=== PATIENT | male | born 1965 | race Caucasian/White ===

== ENCOUNTER 2022-11-14 09:19 | Outpatient (CLI) | payer OTHER, SELFPAY ==
[2022-11-14 14:25] LABS: SARS PCR* POSITIVE SARS-CoV-2 (Negative)
== END 2022-11-14 09:20 | disposition home or self-care (01) ==
LOC: FBOREF 09:20
PROVIDERS: PCP Family Medicine; Visit Provider Orthopaedic Surgery
DX: U07.1 COVID-19 (principal)
CPT/HCPCS: 87635

== ENCOUNTER 2023-01-15 07:45 | Day surgery (SDC) | payer OTHER, SELFPAY ==
--- NOTE | 2022-11-20 11:26 | SUR.PREOP ---
11/20/22 Had a brief phone visit with patient as he already had pre-op teaching before his surgery was postponed. He will schedule a pre-op H&P. Otherwise, denies questions. Sandi CALDERÓN
--- NOTE | 2022-12-18 08:35 | PC.NURSE ---
Spoke with pt briefly as he has had pre-op teaching before surgery re-scheduled. Denies questions. States will call for an H&P appt or whether can be updated. Instructed to call hospital and ask for surgery if has any questions. Mark Gill Rn
[2023-01-15] VITALS (22 sets, daily range): BP systolic 94–144; BP diastolic 60–94; PULSE 56–87; RESP 16–18; TEMP 36.1–36.7; O2SAT 95–100; BMI 31.1
[2023-01-15] MEDS: SODIUM CHLORIDE 0.9 % (FLUSH) 10 ML SYRINGE IVF (08:00)
[2023-01-15] MEDS: CELECOXIB 200 MG CAPSULE PO (08:00)
[2023-01-15] MEDS: ACETAMINOPHEN 500 MG TABLET 1000 MG PO ×3 (08:00→20:31)
[2023-01-15] MEDS: LACTATED RINGERS 1000 ML 1,000 ML 100 ML IV ×2 (08:10→11:04)
[2023-01-15] MEDS: TRANEXAMIC ACID 100 MG/ML INJ 1000 MG IV (08:30)
[2023-01-15] MEDS: fentaNYL 100 MCG/2 ML inj IVP (09:13)
[2023-01-15] MEDS: MIDAZOLAM HCL 1 MG/ML inj IVP (09:13)
--- NOTE | 2023-01-15 09:17 | P.NB_ITS ---
Nerve Block Nerve Block Time Seen by Provider: 09:14 Date Seen: 01/15/23 Type of block requested by surgeon for post-operative analgesia: adductor canal Side: right Time out performed: Yes Verification of patient name: Yes Verification of date of : Yes Site marking: site marked Name of person performing procedure: Miguel Continuous monitoring Was continuous monitoring of O2 sat, B/P, monitoring and evaluation advisor, recorded every 15 minutes?: Yes Procedure Checklist: sterile prep, needles and gloves Ultrasound guided. Images saved: Yes Medications given in 5ml increments after negative aspiration: Ropivicaine %: 0.5 mL: 20 Needle gauge: 20 Decadron (mg): 10 Precedex (mcg): 25 Patient tolerated procedure well: Yes Additional comments: Needle noted adjacent to nerve Block Charges Block Charge (with Pro Fee): Femoral Nerve Use of Ultrasound Machine for Block: Yes- US Guidance/pain block
--- NOTE | 2023-01-15 09:17 | P.NB_ITS ---
Nerve Block Nerve Block Time Seen by Provider: 09:14 Date Seen: 01/15/23 Type of block requested by surgeon for post-operative analgesia: geniculars Side: right Time out performed: Yes Verification of patient name: Yes Verification of date of : Yes Site marking: site marked Name of person performing procedure: Miguel Continuous monitoring Was continuous monitoring of O2 sat, B/P, clinical research monitor, recorded every 15 minutes?: Yes Procedure Checklist: sterile prep, needles and gloves Medications given in 5ml increments after negative aspiration: Ropivicaine %: 0.5 mL: 9 Needle gauge: 25 Patient tolerated procedure well: Yes Block Charges Block Charge (with Pro Fee): Genicular Nerve Block Use of Ultrasound Machine for Block: No
--- NOTE | 2023-01-15 09:17 | W.ANESCHARGE ---
Anesthesia Charges Start Date/Time Anesthesia Start Date: 01/15/23 Anesthesia Start Time: 09:19 Stop Date/Time Anesthesia Stop Date: 01/15/23 Anesthesia Stop Time: 11:19
--- NOTE | 2023-01-15 09:19 | SUR.PREOP ---
TIME?OUT:?912 PT/RN/MDA?VERIFICATION?OF?SURGICAL?SITE,?PROCEDURE,?AND?CONSENT OBTAINED?PRIOR?TO?INVASIVE?PROCEDURE.
[2023-01-15] MEDS: CEFAZOLIN 2 GM INJ IVP (09:30)
--- NOTE | 2023-01-15 10:47 | CRLHL7_ITS ---
For Patients: As a result of the Cures Act, medical imaging exams and procedure reports are released immediately into your electronic medical record. You may view this report before your referring provider. If you have questions, please contact your health care provider. Indication: Postop Technique: Two views right knee Findings/Impression: Hardware from a right total knee arthroplasty is in satisfactory position. Bone alignment is normal. No sign of acute fracture. Postop changes are within normal limits. Dictated by Abelino Edwards MD @ 01/15/2023 12:03:39 PM (Electronically Signed)
--- NOTE | 2023-01-15 10:50 | PM.ORPRC ---
Procedure Note Date of procedure: 01/15/23 Procedure: PREOPERATIVE DIAGNOSIS: Right knee osteoarthritis POSTOPERATIVE DIAGNOSIS: Right knee osteoarthritis NAME OF OPERATION: Right total knee arthroplasty SURGEON: Sameer Patel MD FRIEND OF THE COURT: LESLIE Eli ANESTHESIA: Spinal ESTIMATED BLOOD LOSS: 0 mL COMPLICATIONS: None SPECIMENS: None DRAINS: None PREOPERATIVE ANTIBIOTICS: Ancef 2 grams IMPLANTS: 1. J&J Attune # 8 posterior stabilized femur 2. # 8 fixed-bearing tibia 3. # 8 posterior stabilized, 5 mm fixed-bearing polyethylene 4. 41 patella INDICATIONS: The patient is a 57-year-old with a longstanding history of severe, unrelenting right knee pain secondary to end-stage (grade IV) right knee osteoarthritis. Despite appropriate nonoperative management, including activity modification, anti-inflammatories, [id number] pain medication, bracing, physical therapy, and injections they continue to have pain and disability. Operative intervention was offered. The risks, benefits and expected outcomes were discussed in detail. These included but were not limited to: Infection, bleeding, injury to blood vessel or nerve, venous thromboembolism. All questions were answered to their satisfaction. Use of an environmental engineering assistant was necessary throughout the case for patient positioning and safety, soft tissue retraction, and closure. PROCEDURE: Spinal anesthesia was administered. The patient was placed supine on the operating table. The environmental engineering assistant made sure the patient was positioned appropriately. The lower extremity was prepped and draped in the usual sterile fashion. The limb was exsanguinated with the Jamal bandage. The pneumatic tourniquet was inflated to 300 mmHg. A standard anterior incision was made with the knee in flexion. Subcutaneous dissection was sharply taken through fascial layer #1. Full-thickness medial and lateral flaps were elevated. The environmental engineering assistant retracted the soft tissues and protected them throughout the case. A standard medial parapatellar approach was made. The patella was everted. The infrapatellar fat pad was preserved. The menisci and cruciate ligaments were sharply d?brided. Marginal osteophytes were d?brided with the rongeur. The drill was used to penetrate the femoral canal. The canal was aspirated and irrigated with pulse lavage. The intramedullary femoral guide was placed for a 5-degree valgus cut, removing 10 mm off the distal femur. The saw was used to make the cut. Whitesides line and the trans epicondylar axis were marked. The femoral sizing guide was pinned onto the distal femur. Three degrees of external rotation nicely parallels the transepicondylar axis. Pins were placed for posterior referencing. The four-in-one cutting guide was pinned onto the distal femur. The anterior, posterior, and chamfer cuts were made. The environmental engineering assistant protected the collateral ligaments. The box cutting guide was pinned. The box cuts were made. The boxed trial was placed and was an excellent fit. Drill holes for the lugs were made. Attention was then turned to the proximal tibia. The extramedullary tibial guide was placed for a neutral varus/valgus cut with 5 degrees of posterior slope, removing 2 mm based off the medial tibial surface. The environmental engineering assistant protected the collateral ligaments and the neurovascular bundle. The saw was used to make the cut. Trial components were placed. The knee was tight in both flexion and extension. Therefore, we replaced the tibial cutting jig, advancing it 2 more mm distally. The saw was used to make the cut again. Trial components were placed and now the knee was nicely balanced in both flexion and extension. The trial components were removed. The tray was placed in appropriate rotation, parallel to our tibial cutting pins. It was pinned by the environmental engineering assistant and the drill and the punch were used. The tray was removed. The punch was used again. We placed a bone plug in the femoral canal. Attention was then turned to the patella. [place] patellar thickness was 25 mm. The lobster claw resection guide was used with the 9.5 mm simon. The saw was used to make the cut. Drill holes were made by the environmental engineering assistant. The trial was placed and was an excellent fit. Cancellous surfaces were irrigated with pulse lavage and thoroughly dried by the environmental engineering assistant. We cemented the tibial component, then the femoral component. We impacted the 5 mm polyethylene onto the tibial tray. The knee was brought into full extension. We then cemented the patellar component. Excessive cement was removed. The cement was allowed to harden. The knee was taken through a range of motion and was found to be nicely balanced in both flexion and extension. The patella tracks centrally. The environmental engineering assistant did a three minute dilute Betadine solution soak. The environmental engineering assistant irrigated the wound with 3 liters of normal saline via pulse lavage. The environmental engineering assistant reapproximated the extensor mechanism with #1 Vicryl in an interrupted whcioy-ey-bdsya fashion. The environmental engineering assistant then ran the extensor mechanism with a #1 PDO Stratafix. The environmental engineering assistant closed the subcutaneous tissues with a 3-0 Stratafix and the skin with a running 3-0 Stratafix in a subcuticular fashion. Glue was used to seal the skin. The environmental engineering assistant placed a dry dressing, FELI stocking, and Polar Care. Sponge and needle counts were correct x2. The patient tolerated the procedure well. There were no apparent complications. They were carefully transferred to the hospital bed and taken to the postanesthesia care unit in satisfactory condition. PLAN: The patient will be mobilized with physical therapy. Aspirin will be used for DVT prophylaxis. They will be discharged to home once medically appropriate.
--- NOTE | 2023-01-15 11:15 | W.ANESCHARGE ---
Anesthesia Charges Start Date/Time Anesthesia Start Date: 01/15/23 Anesthesia Start Time: 09:19 Stop Date/Time Anesthesia Stop Date: 01/15/23 Anesthesia Stop Time: 11:19
--- NOTE | 2023-01-15 14:15 | PM.IMPN1 ---
Progress Note: A&P Assessment and plan (1) Status post total right knee replacement: Problem details: 01/15/2023, Dr. Patel Status: Acute (2) Ulcerative colitis: Status: Acute Plan 1. s/p Right total knee arthroplasty. pain control; diet; dvt ppx per surger Subjective Date Seen: 01/15/23 Interval history: PREOPERATIVE DIAGNOSIS:? Right knee osteoarthritis NAME OF OPERATION:? Right total knee arthroplasty SURGEON:? Sameer Patel MD ANESTHESIA:? Spinal ESTIMATED BLOOD LOSS:? 0 mL patient doing well following surgery denies ches pain, sob, nausea, vomiting tolerating diet Exam Narrative: Exam Narrative: Gen: no acute distress HEENT: NCAT EOMI mmm Neck: Supple CV: RRR normal s1 s2 Lungs: CTAB Abd: Soft,nt, nd Neuro: Alert, oriented, CN grossly intact; nonfocal screening exam Psych: appropriate affect MSK: age appropriate muscle mass Skin; Warm, dry no rash on face Const: Vital Signs, click to edit/add: Vital Signs - 24 hr 01/15/23 08:21 01/15/23 09:13 01/15/23 09:15 Temperature 97.9 F Pulse Rate 71 68 69 Respiratory Rate 16 16 16 Blood Pressure 140/94 H 120/89 107/74 Pulse Oximetry 98 100 97 Oxygen Delivery Me thod Room Air Nasal Cannula Nasal Cannula Oxygen Flow Rate 2 2 01/15/23 11:15 01/15/23 11:20 01/15/23 11:25 Temperature 97.1 F L 97.1 F L Pulse Rate 69 67 64 Respiratory Rate 16 16 16 Blood Pressure 97/60 94/63 98/62 Pulse Oximetry 99 99 99 Oxygen Delivery Me thod Nasal Cannula Room Air Room Air Oxygen Flow Rate 2 01/15/23 11:30 01/15/23 11:35 01/15/23 11:40 Temperature Pulse Rate 56 L 62 64 Respiratory Rate 16 16 16 Blood Pressure 97/66 100/69 101/66 Pulse Oximetry 99 99 99 Oxygen Delivery Me thod Room Air Room Air Room Air Oxygen Flow Rate 01/15/23 11:45 Temperature 97.1 F L Pulse Rate 64 Respiratory Rate 16 Blood Pressure 99/66 Pulse Oximetry 99 Oxygen Delivery Me thod Room Air Oxygen Flow Rate
[2023-01-15] MEDS: CEFAZOLIN 2 GM in 0.9 % SODIUM CHLORIDE Mini-bag 100 ML IVPB ×2 (15:39→23:22)
--- NOTE | 2023-01-15 16:12 | PC.NURSE ---
Pt arrived via hospital bed from PACU @ 1150 to med/surg 261 s/p RTKA with Dr. Patel. Please see initial assessment from PACU and frequent post op VS per protocol. Bed alarm engaged and knee lock on per protocol. Bilateral knee high rosalia hose and plexi-pulses with cryocuff in place. Mepilex dressing on Right knee is CDI. Pt alert and oriented, pain 0 out of 10. Post op teaching regarding DVT, pneumonia and SSI prevention completed with family at bedside. Advanced to regular diet. Scheduled tylenol 1000 mg at 1400. LR @ 75 cc/hour maintenance fluid. Tolerated regular diet for lunch. PT eval at 1450 PM with Mariposa who will transfer pt to his recliner. Pt has not voided since arrival to Med/Surg. Report provided to Doreen CALDERÓN for evening shift.
[2023-01-15] MEDS: ASPIRIN 81 MG TABLET EC PO (20:32)
[2023-01-15] MEDS: HYDROmorphone 2 MG TABLET PO (22:00)
--- NOTE | 2023-01-15 22:53 | PC.NURSE ---
End of Shift: Patient pleasant and cooperative. Afebrile. Dressing to right knee C/D/I. CMS intact. Up to chair and bathroom with 1 assist, walker and gait belt. Rating pain 0-3/10 and PRN Dilaudid given x1. Tolerating regular diet with no nausea.
[2023-01-16] MEDS: ACETAMINOPHEN 500 MG TABLET 1000 MG PO ×2 (01:32→08:36)
[2023-01-16 03:00] VITALS: RESP 18
[2023-01-16 06:56] LABS: Hematocrit 41.1 % (37.0-53.0); Hemoglobin* 13.8 gm/dL (13.5-17.5); Immature Granulocytes Pct Auto 0.2 %; Lymphocytes Percent Auto 6.7 % (20-44); Mean Corpuscular HGB Conc 34 gm/dL (32-36); Mean Corpuscular Hemoglobin 30 pg (26-34); Mean Corpuscular Volume 89 fL (80-100); Monocytes Percent Auto 4.9 % (0.0-11.0); Neutrophils Percent Auto 88.2 % (42.0-72.0); Platelet Count* 196 K/uL (140-440); RDW Coefficient of Variation % 13.3 % (11.5-15.5); White Blood Count* 11.52 K/uL (4.50-11.00)
[2023-01-16 06:59] LABS: Slide Review Reflex No
[2023-01-16] MEDS: CEFAZOLIN 2 GM in 0.9 % SODIUM CHLORIDE Mini-bag 100 ML IVPB (06:59)
--- NOTE | 2023-01-16 07:21 | PC.NURSE ---
23-: SBA with gb and walker, tolerates well, pt hesitant to put weight on right knee. Reports pain 3/10, pt stated he would like to take pain medication after breakfast so it will be timed nicely with therapies. Pt c/o hearing water like swooshing in his right knee last evening and that he was worried about it. Heater Planer Operator assessed the area and palpated crepitus around the surgical dressing, crepitus no longer palpable by end of shift. Right knee swollen, cryo cuff on, dressing CDI, pedal pulses present.
[2023-01-16 07:25] VITALS: BP 125/88; PULSE 67; RESP 16; TEMP 36.8; O2SAT 100
[2023-01-16 07:28] LABS: INR 1.01 (0.91-1.10); Prothrombin Time 13.9 Seconds
[2023-01-16 07:34] LABS: Potassium* 4.3 mmol/L (3.6-5.1); Sodium* 136 mmol/L (135-149)
[2023-01-16 07:37] LABS: Creatinine* 0.9 mg/dL (0.5-1.5); Estimated Glomerular Filt Rate 100 ml/min
[2023-01-16 07:38] LABS: Blood Urea Nitrogen* 17 mg/dL (7-30)
[2023-01-16] MEDS: HYDROmorphone 2 MG TABLET PO (07:43)
[2023-01-16] MEDS: ASPIRIN 81 MG TABLET EC PO (07:45)
--- NOTE | 2023-01-16 08:37 | P.ORPN_ITS ---
Subjective Subjective Time Seen by Provider: 07:45 Date Seen: 01/16/23 Principal diagnosis: Status post right total knee arthroplasty Interval history: Marco is comfortable this morning he has noted sloshing' anterior knee. He is not able to straight leg raise. Will be discharging to home today. Ortho Exam Narrative Exam Narrative: Alert and oriented x3. Patient is in no acute distress. Converses without labored breathing. Hearing is grossly intact. Ambulates with a walker. Examination of the right knee shows the dressing is intact. No erythema or warmth or sign of infection. Subcutaneous blood collection is present. Effusion is present. Soft tissue edema is mild. He is not able to straight leg raise. Lateral calves are soft and nontender. CMS intact right lower extremity Const Vital Signs, click to edit/add: Vital Signs - 24 hr 01/15/23 09:13 01/15/23 09:15 01/15/23 11:15 Temperature 97.1 F L Pulse Rate 68 69 69 Pulse Rate [Pulse Oximeter] Pulse Rate [Right Dorsalis Pedis] Respiratory Rate 16 16 16 Blood Pressure 120/89 107/74 97/60 Blood Pressure [Right Arm] Pulse Oximetry 100 97 99 Oxygen Delivery Method Nasal Cannula Nasal Cannula Nasal Cannula Oxygen Flow Rate 2 2 2 01/15/23 11:20 01/15/23 11:25 01/15/23 11:30 Temperature 97.1 F L Pulse Rate 67 64 56 L Pulse Rate [Pulse Oximeter] Pulse Rate [Right Dorsalis Pedis] Respiratory Rate 16 16 16 Blood Pressure 94/63 98/62 97/66 Blood Pressure [Right Arm] Pulse Oximetry 99 99 99 Oxygen Delivery Method Room Air Room Air Room Air Oxygen Flow Rate 01/15/23 11:35 01/15/23 11:40 01/15/23 11:45 Temperature 97.1 F L Pulse Rate 62 64 64 Pulse Rate [Pulse Oximeter] Pulse Rate [Right Dorsalis Pedis] Respiratory Rate 16 16 16 Blood Pressure 100/69 101/66 99/66 Blood Pressure [Right Arm] Pulse Oximetry 99 99 99 Oxygen Delivery Method Room Air Room Air Room Air Oxygen Flow Rate 01/15/23 12:08 01/15/23 11:50 01/15/23 12:08 Temperature 97 F L 97 F L 97 F L Pulse Rate 59 L Pulse Rate [Pulse Oximeter] 57 L 57 L Pulse Rate [Right Dorsalis Pedis] Respiratory Rate 16 16 16 Blood Pressure Blood Pressure [Right Arm] 102/71 100/80 102/71 Pulse Oximetry 99 99 Oxygen Delivery Method Room Air Room Air Room Air Oxygen Flow Rate 01/15/23 12:15 01/15/23 12:30 01/15/23 12:45 Temperature Pulse Rate Pulse Rate [Pulse Oximeter] 62 61 66 Pulse Rate [Right Dorsalis Pedis] Respiratory Rate 16 16 16 Blood Pressure Blood Pressure [Right Arm] 113/82 112/76 117/90 H Pulse Oximetry 100 99 96 Oxygen Delivery Method Room Air Room Air Room Air Oxygen Flow Rate 01/15/23 13:00 01/15/23 13:30 01/15/23 14:00 Temperature Pulse Rate Pulse Rate [Pulse Oximeter] 76 80 78 Pulse Rate [Right Dorsalis Pedis] Respiratory Rate 16 16 16 Blood Pressure Blood Pressure [Right Arm] 118/93 H 119/84 127/86 Pulse Oximetry 96 98 Oxygen Delivery Method Room Air Room Air Room Air Oxygen Flow Rate 01/15/23 15:00 01/15/23 15:00 01/15/23 15:00 Temperature 98.0 F Pulse Rate Pulse Rate [Pulse Oximeter] 83 Pulse Rate [Right Dorsalis Pedis] Respiratory Rate 16 16 Blood Pressure Blood Pressure [Right Arm] 128/83 Pulse Oximetry 97 97 Oxygen Delivery Method Room Air Oxygen Flow Rate 01/15/23 16:00 01/15/23 19:00 01/15/23 23:00 Temperature 97.6 F 97.6 F Pulse Rate Pulse Rate [Pulse Oximeter] 87 86 82 Pulse Rate [Right Dorsalis Pedis] Respiratory Rate 16 16 16 Blood Pressure Blood Pressure [Right Arm] 126/87 126/94 H 144/87 H Pulse Oximetry 97 95 98 Oxygen Delivery Method Room Air Room Air Room Air Oxygen Flow Rate 01/15/23 23:00 01/15/23 23:00 01/16/23 03:00 Temperature Pulse Rate Pulse Rate [Pulse Oximeter] 82 Pulse Rate [Right Dorsalis Pedis] Respiratory Rate 18 18 Blood Pressure Blood Pressure [Right Arm] Pulse Oximetry 98 Oxygen Delivery Method Room Air Oxygen Flow Rate 01/16/23 07:25 01/16/23 07:25 Temperature 98.2 F Pulse Rate Pulse Rate [Pulse Oximeter] 67 Pulse Rate [Right Dorsalis Pedis] 67 Respiratory Rate 16 Blood Pressure Blood Pressure [Right Arm] 125/88 Pulse Oximetry 100 100 Oxygen Delivery Method Room Air Oxygen Flow Rate Assessment and Plan Assessment and plan (1) Status post total right knee replacement: Problem details: 01/15/2023, Dr. Patel Status: Acute Assessment and Plan: Plan for discharge is today to home if they meet discharge criteria. DVT prophylaxis includes aspirin 81 mg twice daily x1 month, Helder stockings x1 month may remove for 1 hr per day, frequent ambulation Remove dressing in 1 week. Observe wound and phone Orthopedics with any questions or concerns Return to clinic in 1 week for a wound check Return to clinic in [address] Patel Minimize narcotic use. Wean off and discontinue soon as possible. Activities as tolerated. No strenuous activity. Outpatient physical therapy as scheduled. Ice and elevate the operative extremity. No restriction on ice. He will be attending physical therapy at [facility] physical [facility]. We discussed thatsloshing is fluid collection/blood collection in the subcutaneous tissue. This will resolve with time. The effusion will resolve in time. He is not able to straight leg raise due to the heme arthrosis. In time he will be able to. (2) Ulcerative colitis: Status: Acute
[2023-01-16 08:54] VITALS: BP 99/66; PULSE 59; RESP 16; TEMP 36.8
--- NOTE | 2023-01-16 09:00 | PC.NURSE ---
Pt eval by Jina flaherty PA and myself this am. Pt had scheduled tylenol 1000 mg and prn dilaudid 2mg for right knee pain 2 out of 10. Up to BR for void and medium bm. Pt declined senna d/to hx of ulcerative colitis with partial bowel removal in 1987. My normal is 10-12 bms each day. Plan PT and OT evaluations prior to planned discharge. Third dose of ATB infused w/o difficulty, IV site discontinued and catheter tip intact. Cryocuff to swollen right knee and elevated leg in recliner. Teds & plexipulses per post op routine. A & 0, pt is cooperative with nursing care interventions. Marco is extremely motivated to participate in therapy and go home today.
--- NOTE | 2023-01-16 09:33 | PC.SOCIAL ---
Per therapy and the physician, pt. is moving well and will discharge home with spouse support today.
--- NOTE | 2023-01-16 10:37 | PC.NURSE ---
PT and OT completed. Pt verbalized understanding of d/c diagnosis, new meds, pain management plan, f/up appt and sx to report urgently to physician. Pt discharged via w/c to own home with personal belongings @ 2202 with spouse Lorena as transportation.
== END 2023-01-16 10:32 | disposition home or self-care (01) ==
LOC: OR 07:46 → MEDSURG 07:49
PROVIDERS: PCP Family Medicine; Visit Provider Orthopaedic Surgery
PROC: (CPT 27447; principal; 2023-01-15 09:45)
DX: M17.11 Unilateral primary osteoarthritis, right knee (principal); K51.90 Ulcerative colitis, unspecified, without complications
CPT/HCPCS: 27447; 01402; 36415; 64447; 64454; 73560; 76942; 82565; 84132; 84295; 84520; 85025; 85610; 97110; 97116; 97161; 97165; 97535; A9270; C1776; J0690; J1100; J2250; J2370; J2405; J2704; J3010; J7120

== ENCOUNTER 2024-09-22 06:51 | Day surgery (SDC) | payer OTHER, SELFPAY ==
[2024-09-22] VITALS (12 sets, daily range): BP systolic 112–145; BP diastolic 81–105; PULSE 54–70; RESP 12–20; TEMP 36.2–36.8; O2SAT 96–98; BMI 35.6
--- OUTSIDE RECORDS SUMMARY | 2024-09-22 06:53 | XMS_ITS | Data Portability ---
Author Organization [facility], [facility] Address [address] [place] [address] Care Team Providers Care Float Phlebotomist Name Role Phone ROBLESDAYTON DOMINIQUE RAO Primary Care Provider [phone] Assessment No assessment recorded. Plan of Treatment Reminders Order Date Submit Date Provider Last Modified By Organization Details Last Modified Time Details Appointments None recorded. Lab prostate specific Ag, serum or plasma 2019 020 [email or web address] [facility], [address], [address], [place], [address], 0 15:14:04 PSA, serum or plasma 2019 020 [email or web address] [facility], [address], [address], [place], [address], 1 16:02:48 Referral None recorded. Procedures None recorded. Surgeries None recorded. Imaging None recorded. Medication Orders gentamicin 40 mg/mL injection solution 2019 020 [email or web address] Not available 0 10:24:02 Patient TargetsNo targets recorded. Patient InstructionsNo instructions recorded. Reason for Referral None Reported. Results Created Date Observation Date Name Description Value Unit Range Abnormal Flag Note LastModifiedBy Organization Detail LastModifiedTime 05/26/20 20 05/26/2020 MRI, prost ate, w/wo contr ast No observ ation record ed. [email or web address] [facility] - [address], [address], 06/02/2020 12:52:30 10/15/19 24 10/15/2023 MRI, prost ate, w/wo contr ast No observ ation record ed. [facility] (Centralized Fax Number) [phone] [place], [address], 10/17/2023 13:00:02 Result Notes None recorded. Procedures Surgical History Date Name Laterality Status Provider Name and Address Organization Details Recorded Time 0 Gentamicin Injection completed Pilarandreas Gerardomallika [facility] 06/21/2020 10:24:45 0 Gentamicin Injection completed Pilar Bacon [facility] 06/21/2020 11:05:31 0 TRUS- Volume size only completed Barney Rodriguez MD [address] [place] [address],[address], [place], [address], [facility] 06/21/2020 11:08:13 Imaging Results Imaging Date Name Status LastModified by Organiz ation Details LastModified Time 05/26/2020 MRI, prostate, w/wo contrast completed [address] [facility] - [address], [address], 06/02/2020 12:52:30 10/15/2023 MRI, prostate, w/wo contrast completed [facility] (Centralized Fax Number) [phone] [place], [address], 10/17/2023 13:00:02 Procedure Notes None recorded. Medical Equipment None Reported. Medications Name Sig Start Date Stop Date Status Note LastModified by Organization Details LastModified Time gentamicin 40 mg/mL injection solution Gentamicin 2019 active Not Available Not Available Not Avai lable Vitals None Recorded Social History None recorded. Functional Status None recorded. Mental Status None recorded. Family History Nothing Reported. Medical History No medical history recorded. Past Encounters Encounter ID Performer Location Encounter Start Date Encounter Closed Date Diagnosis/Indication Diagnosis SNOMED-CT Code Diagnosis ICD10 Code [id number] Barney Rodriguez MD [facility] [address] [facility],[address] [place] [address] 05/09/2020 14:03:21 06/12/2020 13:50:12 [id number] MD [facility] [address] [place] [address],[address] [place] [address] 06/21/2020 10:13:57 06/21/2020 15:11:21 Prostate specific antigen outside reference range [id number] R97.8 [id number] Pilar Bacon [facility] [address] [place] [address],[facility] [address] [place] [address] 06/21/2020 10:15:46 06/21/2020 14:52:49 Prostate specific antigen above reference range [id number] R97.20 Health Concerns Section Related Observation LastModified by Organization Detai ls LastModified Time None Recorded Concern Status LastModified by Organization Details LastModified Time None Recorded Advance Directives Directive None Recorded Payers Encounter Date Sequence Insurance Name Policy Number Policy Morillo Covered Member ID Morillo Member ID Guarantor Name 05/09/2020 1 *SELF PAY* Da giovanny Del Castillo 06/21/2020 1 [facility] Marco M Del Castillo [id number] Marco M Del Castillo 06/21/2020 1 [facility] Marco M Del Castillo [id number] Marco M Del Castillo Notes Date Note Type Note Provider Name and Address Organization Details Recorded Time 06/21/2020 text/html Patient w history of elevated psa 4.2. in today for prostate biopsy and trus. of note: he has had colon cancer in the past with an APR and so we were unsure if would be able to tolerate prostate biopsy Barney Rodriguez MD [address] [facility],[address], [place], [address], [facility] 06/21/2020 11:10:08
[2024-09-22] MEDS: SODIUM CHLORIDE 0.9 % (FLUSH) 10 ML SYRINGE IVF (07:39)
[2024-09-22] MEDS: LACTATED RINGERS 1000 ML 1,000 ML 100 ML IV (08:43)
[2024-09-22] MEDS: CEFAZOLIN 2 GM INJ IVP (08:48)
[2024-09-22] MEDS: BUPIVACAINE 0.25% 30 ML INJECTION (09:18)
--- NOTE | 2024-09-22 10:33 | W.ANESCHARGE ---
Anesthesia Charges Start Date/Time Anesthesia Start Date: 09/22/24 Anesthesia Start Time: 08:42 Stop Date/Time Anesthesia Stop Date: 09/22/24 Anesthesia Stop Time: 10:35
--- NOTE | 2024-09-22 12:38 | PM.ORPRC ---
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 Operative intervention was recommended. The risks, benefits and expected outcomes were discussed in detail. These included but were not limited to: Infection, bleeding, injury to blood vessel or nerve, venous thromboembolism. All questions were answered to their satisfaction. PROCEDURE: Spinal anesthesia was administered. The patient was placed supine on the operating room table. The right lower extremity was prepped and draped in the usual sterile fashion. The limb was exsanguinated with the Jamal bandage. The pneumatic tourniquet was inflated to 300 mmHg. A standard anterolateral portal was established. The arthroscope was introduced. The working portal was established anteromedially. Diagnostic arthroscopy was performed with findings as follows: The patellar component is intact with a minimal amount of scarring surrounding the distal pole. The femoral component is normal, the tibial polyethylene is normal. The scarring posterior to ther patellar tendon was debrided with the radiofrequency probe and shaver. A superolateral portal was placed. There was no real scarring posterior to the quads tendon. The medial gutter is normal. The lateral gutter shows hyperemic synovitis. This was debrided with a shaver. There was a significant amount of cement well attached to the bone, just lateral to the femoral component. This was felt to be the reason for the lateral crepitation and painful symptoms. The 3.5 mm round bur was used to resect the cement all the way from the posterior chamfer to the proximal portion of the femoral component. Arthroscopic instruments were removed, the portal sites were closed with a 3-0 nylon. Portals were injected with 0.25% Marcaine without epinephrine. A dry dressing was applied, the tourniquet was released. Sponge and needle counts were correct x 2. The patient tolerated the procedure well. There were no apparent complications. They were carefully transferred to the hospital bed and taken to the postanesthesia care unit in satisfactory condition. PLAN: The patient will be discharged to home. They may weightbear as tolerates. Range of motion will be unrestricted. They will follow up in the office in 2 weeks for a wound check and suture removal.
== END 2024-09-22 12:05 | disposition home or self-care (01) ==
LOC: OR 06:51
PROVIDERS: PCP Family Medicine; Visit Provider Orthopaedic Surgery
PROC: (CPT 29870; principal; 2024-09-22 08:45)
DX: M25.861 Other specified joint disorders, right knee (principal); Z96.651 Presence of right artificial knee joint
CPT/HCPCS: 29877; 01400; J0665; J0690; J2704; J7120

== ENCOUNTER 2025-05-11 10:54 | Outpatient (CLI) | payer OTHER, SELFPAY | END 2025-05-11 10:55 | disposition home or self-care (01) | LOC: INJ CL 10:54 | PROVIDERS: PCP Family Medicine; Visit Provider Family Medicine | DX: M54.16 Radiculopathy, lumbar region (principal); M51.369 Other intervertebral disc degeneration, lumbar region without mention of lumbar back pain or lower extremity pain | CPT/HCPCS: 62323; J0702; Q9966 ==

== ENCOUNTER 2025-09-01 06:08 | Day surgery (SDC) | payer OTHER, SELFPAY ==
[2025-09-01] VITALS (28 sets, daily range): BP systolic 100–153; BP diastolic 64–114; PULSE 57–96; RESP 12–20; TEMP 36.6–36.8; O2SAT 71–100; BMI 34.0
[2025-09-01] MEDS: LACTATED RINGERS 1000 ML 1,000 ML 100 ML IV ×3 (06:10→10:16)
[2025-09-01] MEDS: ACETAMINOPHEN 500 MG TABLET 1000 MG PO (06:51)
[2025-09-01] MEDS: SODIUM CHLORIDE 0.9 % (FLUSH) 10 ML SYRINGE IVF (06:53)
--- NOTE | 2025-09-01 07:02 | SUR.PREOP ---
TIME?OUT:?0703 PT/RN/MDA?VERIFICATION?OF?SURGICAL?SITE,?PROCEDURE,?AND?CONSENT OBTAINED?PRIOR?TO?INVASIVE?PROCEDURE.
[2025-09-01] MEDS: MIDAZOLAM HCL 1 MG/ML inj IVP (07:06)
--- NOTE | 2025-09-01 07:15 | CRLHL7_ITS ---
For Patients: As a result of the Cures Act, medical imaging exams and procedure reports are released immediately into your electronic medical record. You may view this report before your referring provider. If you have questions, please contact your health care provider. INDICATION: Left total hip arthroplasty. TECHNIQUE: Single spot fluoroscopic views of the left hip. COMPARISON: None. FINDINGS: Left hip arthroplasty appears appropriately positioned. Please see operative report/procedure note for complete details. Fluoroscopy time: 42.3 seconds. Radiation dose: 9.4 mGy. IMPRESSION: Fluoroscopic guidance for left hip arthroplasty. Dictated by Rey Cotton MD @ 09/03/2025 10:52:12 AM (Electronically Signed)
--- NOTE | 2025-09-01 07:27 | W.PM.H&PU ---
History & Physical Update History & Physical Update H&P Reviewed and patient assessed: No changes noted
[2025-09-01] MEDS: TRANEXAMIC ACID 100 MG/ML INJ 1000 MG IV (07:38)
--- NOTE | 2025-09-01 07:46 | P.ANES_ITS ---
Anesthesia Charges Start Date/Time Anesthesia Start Date: 09/01/25 Anesthesia Start Time: 07:25 Stop Date/Time Anesthesia Stop Date: 09/01/25 Anesthesia Stop Time: 10:10 Coding CPT Codes CPT Codes: ANESTH HIP ARTHROPLASTY - 44155 ([id number]) P2 - PATIENT W/MILD SYST DISEASE, QK - FIELD FOREMAN 2-4 CNCRNT ANES PROC, QX - ACCOUNTS PAYABLE BOOKKEEPER SVC W/ MD MED DIRECTION
--- NOTE | 2025-09-01 07:46 | P.NB_ITS ---
Nerve Block Nerve Block Time Seen by Provider: 07:05 Date Seen: 09/01/25 Type of block requested by surgeon for post-operative analgesia: KONSTANTIN/LFCN Side: left Time out performed: Yes Verification of patient name: Yes Verification of date of : Yes Site marking: site marked Name of person performing procedure: Miguel Continuous monitoring Was continuous monitoring of O2 sat, B/P, herpetologist, recorded every 15 minutes?: Yes Procedure Checklist: sterile prep, needles and gloves Ultrasound guided. Images saved: Yes Medications given in 5ml increments after negative aspiration: Ropivicaine %: 0.5 mL: 30 Needle gauge: 20 Precedex (mcg): 25 Patient tolerated procedure well: Yes Additional comments: Needle noted below psoas tendon needle noted adjacent to LFCN Block Charges Block Charge (with Pro Fee): Other Periph Nerve Block Use of Ultrasound Machine for Block: Yes- US Guidance/pain block
--- NOTE | 2025-09-01 07:46 | W.ANESCHARGE ---
Anesthesia Charges Start Date/Time Anesthesia Start Date: 09/01/25 Anesthesia Start Time: 07:25 Stop Date/Time Anesthesia Stop Date: 09/01/25 Anesthesia Stop Time: 10:10 Coding CPT Codes CPT Codes: ANESTH HIP ARTHROPLASTY - 11773 ([id number]) P2 - PATIENT W/MILD SYST DISEASE, QK - COSTUME CUTTER 2-4 CNCRNT ANES PROC, QX - AMMONIA BOX OPERATOR SVC W/ MD MED DIRECTION
--- NOTE | 2025-09-01 09:30 | P.ORPRC_ITS ---
Procedure Note Date of procedure: 09/01/25 Procedure: PREOPERATIVE DIAGNOSIS: 1. Left hip osteoarthritis, severe, primary POSTOPERATIVE DIAGNOSIS: 1. Left hip osteoarthritis, severe, primary PROCEDURE: 1. Left total hip arthroplasty-anterior approach 2. Intraoperative fluoroscopy interpreted by Parvez Cruz M.D. for intraoperative evaluation of implant positioning, stem alignment, leg length and offset evaluation. Fluoroscopy time was 42.3. SURGEON: Parvez Cruz MD. SUPERVISOR TREATING AND PUMPING: Navid Lee PA-C; PALOMA Eli - Of note, a skilled sugar laboratory assistant was critical for this case to aid in patient positioning, tissue retraction, limb manipulation/positioning, dislocation/relocation, patient safety, and closure. ANESTHESIA: General endotracheal anesthetic EBL: 350 ml IMPLANTS: DePuy J&J uncemented total hip [place] cup size 56, hole eliminator, +4 neutral liner Actis stem, high offset, size 7 +5 mm ceramic 36mm head. COMPLICATIONS: None evident INDICATIONS: The patient is a pleasant 59 yo male who has experienced severe left hip pain and difficulty bearing weight. Workup included x-rays which revealed severe osteoarthrosis in the hip. Given the deformity, the dysfunction, and the pain, as well as the failure of nonoperative management, recommendation was made for surgery. FINDINGS: Full-thickness cartilage loss throughout the femoral head and acetabulum. Osteophytes around the perimeter of the femoral head/neck junction and acetabulum. Large effusion upon entering the joint. DESCRIPTION OF PROCEDURE: Following a thorough discussion of risks, benefits, and alternatives consent was obtained and the left hip was marked. The patient was brought to the operating room and placed supine on the operating table. Induction of anesthesia was undertaken. 2 g IV Ancef and 1 g tranexamic acid was administered within 1 hr of incision preoperatively. Proper time-out was performed identifying proper patient, site, procedure. The operative extremity was prepped and draped in the appropriate sterile fashion using ChloraPrep after the patient was positioned on the [place] table with head in neutral alignment and all bony prominences well padded. C-arm fluoroscopic imaging was utilized to confirm proper pelvis rotation and position, and to get true AP films of both the contralateral left, and the affected left hip. This is for comparison. A longitudinal incision was made starting approximately 1 cm distal to the ASIS, and 2-3 cm lateral. The incision was extended distally aiming toward the fibular head. Sharp incision through skin and bovie cautery through the subcutaneous tissue allowed identification of the TFL fascia. This was sharply divided, and the fascia bluntly released from the muscle fibers as we dissected medial. Upon coming to the medial border, we were able to retract the TFL laterally, and penetrated the deeper fascia and identify the crossing circumflex vessels. These were ligated/cauterized. The rectus was elevated from the capsule, and retractors placed laterally and medially along the femoral neck to help with visualization of the capsule. We then performed an inverted T capsulotomy. The capsule was tagged for later repair. Retractors were placed inside the capsule. The femoral neck was visualized after releasing medially down to the lesser trochanter, along the saddle laterally, and up onto the acetabulum. The femoral neck cut was made in line with our preoperative templating. The head was removed in a single piece, and sized. We turned our attention to acetabular preparation. Initially, the labrum was resected from around the perimeter, the pulvinar was excised, allowing us to visualize the false wall. We started the reaming with a 43 mm reamer. This was medialized down to the true wall. We then enlarged our reamers sequentially up to one size less than the selected cup size. We trialed at the same size and found it to have an excellent fit. The selected cup was then opened, inserted, and impacted in line with the goal of 40-45? of abduction, and 20-25? of anteversion. This was confirmed on C-arm fluoroscopic imaging to be in the appropriate/goal position. Once the cup was placed we placed a hole eliminator and a liner consistent with preop planning. Attention was turned to the femoral preparation. The limb was extended, externally rotated, and adducted. The posteromedial capsule was released, as retractors were placed allowing excellent access to the proximal femur. Initially a box printer was followed by canal finder followed by various broaches. We broached sequentially up to size noted above, found it to have excellent rotational control, and trialing various heads and necks, revealed that appropriate neck offset, and the above noted head size provided the greatest stability, and yarsanism of length, and offset. C-arm fluoroscopic imaging confirmed position of the stem, as well as leg lengths, which were compared with the pre procedure all fluoroscopic images. Trial implants were removed, the real femoral stem inserted, as was the ceramic head. After reducing, the leg was placed through range of motion and stability was confirmed anterior, posterior, and lateral. A 3 min Betadine soak was then performed, and thorough irrigation with normal saline followed. Closure of the capsule was performed with #1 PDS. Bleeding was confirmed to be controlled at this stage, and the TFL fascia was closed with #0 strata fix. Subcutaneous, and subcuticular closure was performed with 2-0 Stratafix and 4-0 Stratafix, respectively. Dressings were applied, and the patient was awoken from anesthesia and transferred the PACU in stable condition. A skilled sugar laboratory assistant was critical for this case to aid in patient positioning, tissue retraction, proximal femur exposure, limb manipulation/positioning, dislo cation/relocation, patient safety, and closure. PLAN: 1. Weight bear as tolerated operative extremity. 2. 23 hr perioperative antibiotics. 3. Ice. 4. PT/OT consults for ambulation assistance/mobility education. 5. Social work consult for discharge planning. 6. DVT prophylaxis with at SCDs and Xarelto x5 days followed by aspirin for a total of 1 month.
--- NOTE | 2025-09-01 09:42 | CRLHL7_ITS ---
For Patients: As a result of the Cures Act, medical imaging exams and procedure reports are released immediately into your electronic medical record. You may view this report before your referring provider. If you have questions, please contact your health care provider. INDICATION: Hip postop. TECHNIQUE: Pelvis one view. Left hip one view. COMPARISON: None. FINDINGS: Left hip arthroplasty appears appropriately positioned. Soft tissue gas consistent with recent surgery. No acute osseous abnormality or other significant interval change. IMPRESSION: Expected changes status post left hip arthroplasty. Dictated by Rey Cotton MD @ 09/03/2025 12:07:19 PM (Electronically Signed)
--- NOTE | 2025-09-01 10:14 | P.ANES_ITS ---
Anesthesia Charges Start Date/Time Anesthesia Start Date: 09/01/25 Anesthesia Start Time: 07:25 Stop Date/Time Anesthesia Stop Date: 09/01/25 Anesthesia Stop Time: 10:10 Coding CPT Codes CPT Codes: ANESTH HIP ARTHROPLASTY - 47972 ([id number]) P3 - PATIENT W/SEVERE SYS DISEASE, QK - EDUCATION GENERAL MANAGER 2-4 CNCRNT ANES PROC, QX - BUFFING MACHINE OPERATOR SEMIAUTOMATIC SVC W/ MD MED DIRECTION
--- NOTE | 2025-09-01 10:14 | W.ANESCHARGE ---
Anesthesia Charges Start Date/Time Anesthesia Start Date: 09/01/25 Anesthesia Start Time: 07:25 Stop Date/Time Anesthesia Stop Date: 09/01/25 Anesthesia Stop Time: 10:10 Coding CPT Codes CPT Codes: ANESTH HIP ARTHROPLASTY - 48437 ([id number]) P3 - PATIENT W/SEVERE SYS DISEASE, QK - CONCERT PIANIST 2-4 CNCRNT ANES PROC, QX - COBBLER UPPER SVC W/ MD MED DIRECTION
--- NOTE | 2025-09-01 11:44 | SUR.PHASEII ---
On entry to Phase II, patient speaking with real estate underwriter. When patient dozed off, O2 sats to 75% RA. Patient placed on NC 3L. O2 sats increased to 95% 3L NC. When patient dozed, O2 sats decreased to 75%. Patient 6L mask. O2 sats maintaining at 100%. Patient states 3/10for hip and back pain is tolerable. He feels drowsy and would like to sleep. Water provided. Pt denies any other needs. Call light within reach.
--- NOTE | 2025-09-01 12:34 | SUR.PHASEII ---
1210: Patient ambulatory to restroom with stand by assist of 2, gait belt, and walker. Patient voided. Returned to room. Resting in recliner. Pain 12/14. Patient denies dizziness and lightheadedness. Call light within reach.
[2025-09-01] MEDS: ACETAMINOPHEN 500 MG TABLET PO (12:46)
== END 2025-09-01 14:15 | disposition home or self-care (01) ==
LOC: OR 06:08
PROVIDERS: PCP Family Medicine; Visit Provider Orthopaedic Surgery Sports Medicine
PROC: (CPT 27130; principal; 2025-09-01 07:15)
DX: M16.12 Unilateral primary osteoarthritis, left hip (principal); G89.18 Other acute postprocedural pain
CPT/HCPCS: 27130; 01214; 36415; 64450; 73501; 76942; 86850; 86900; 86901; 97110; 97116; 97161; 97165; 97535; A9270; C1776; J0690; J1100; J1171; J2250; J2371; J2405; J2704; J2710; J2795; J3010; J3475; J3490; J7120